=== PATIENT | female | born 1980 | race Caucasian/White ===

== ENCOUNTER 2019-10-06 08:16 | Emergency (ER) | payer SELFPAY ==
[~2019-10-06] VITALS: Ht 157 cm; Wt 81.4 kg
[2019-10-06 08:20] VITALS: BP 147/104
[2019-10-06] MEDS ORDERED: KETOROLAC 60 MG/2 ML VIAL IM STA (08:29)
[2019-10-06] MEDS ORDERED: TRIM/SULFAMETH 160/800 (SEPTRA DS) TAB PO STA (08:29)
[2019-10-06] MEDS ORDERED: HYDROcodone/APAP 5 MG/325 MG (LORTAB) TAB PO ONE (08:30)
[2019-10-06] MEDS ORDERED: cefTRIAXone 1,000 MG/2.86 ml vial (IM ONLY) IM ONE (08:30)
[2019-10-06] MEDS ORDERED: LIDOCAINE 1% INJ 20 ML 20 ML VIAL INJ ONE (08:30)
--- NOTE | 2019-10-06 08:44 | ED General ---
General Chief Complaint: Facial Problems Stated Complaint: SWOLLEN FACE Nursing Triage Note: PT CO OF L SIDED FACE AND JAW SWELLING STARTED LAST PM, PT CO OF PAIN 04/03. PT DENIES DENTAL PAIN, PT HAS PIMPLE ON L LOWER FACE THAT SHE SQUEEZED. PT STATES HAS HAD MRSA BEFORE Nursing Sepsis Screen: No Definite Risk Source of Information: Patient Exam Limitations: No Limitations History of Present Illness Date Seen by Provider: Oct 06, 2019 Time Seen by Provider: 08:23 Initial Comments Here with report of swelling to the left side of the face especially in the area of the lower jaw. Pain is radiating to the eye, ear and angle of the jaw. Denies any teeth pain. States that she had a pimple that she tried to pop. She was not able to express anything from it and just put witch lisa on it. This was yesterday and she woke up this morning with swelling and pain. She's had history of MRSA and similar swelling previously to another part of her face. She reports she was decolonized afterwards. Denies breathing problems, swallowing problems, nausea or vomiting. No reported fever. Timing/Duration: 12 Hours, Getting Worse Severity: Moderate Associated Systoms: No Cough, No Fever/Chills, No Nausea/Vomiting, No Shortness of Air, No Weakness Allergies and Home Medications Allergies Coded Allergies: No Known Drug Allergies (Unverified , 10/06/19) Home Medications Sulfamethoxazole/Trimethoprim 1 Each Tablet, 1 EACH PO BID Prescribed by: EVELINA AUGUSTE on 10/06/19 0848 Patient Home Medication List Home Medication List Reviewed: Yes Review of Systems Review of Systems Constitutional: see HPI; No chills, No fever EENTM: see HPI, ear pain, mouth pain Respiratory: no symptoms reported Cardiovascular: no symptoms reported Gastrointestinal: no symptoms reported Skin: see HPI, change in color, lesions Past Eurcfth-Mhjaeb-Oexaiy Hx Past Med/Social Hx: Reviewed Nursing Past Med/Soc Hx Patient Social History Alcohol Use: Denies Use Recreational Drug Use: No Smoking Status: Current Everyday Smoker Type Used: Cigarettes Recent Foreign Travel: No Contact w/Someone Who Travel: No Recent Infectious Disease Expo: No Recent Hopitalizations: No Physical Abuse: No Sexual Abuse: No Seasonal Allergies Seasonal Allergies: No Past Medical History Adenoidectomy, Tonsillectomy, Tubal Ligation Cardiac: No Neurological: No Genitourinary: No Gastrointestinal: No Musculoskeletal: No Endocrine: No HEENT: No Cancer: No Psychosocial: No Integumentary: Yes (MRSA) Family Medical History Reviewed Nursing Family Hx No Pertinent Family Hx Physical Exam Vital Signs Vital Signs - First Documented 10/06/19 08:20 Temp 37.2 Pulse 96 Resp 18 B/P (MAP) 147/104 (118) Pulse Ox 100 Capillary Refill : Less Than 3 Seconds Height, Weight, BMI Height: '" Weight: lbs. oz. kg; 33.00 BMI Method: General Appearance: WD/WN, Mild Distress (pain) HEENT: PERRL/EOMI, TMs Normal, Pharynx Normal, Other (no obvious dental abscess. Swelling noted to the left side of the face lateral to the corner of the lips. Central portion has papule with surrounding erythema and induration. No obvious fluctuant area.) Neck: Non Tender, Supple Respiratory: Lungs Clear, Normal Breath Sounds Cardiovascular: Regular Rate, Rhythm, No Murmur Neurologic/Psychiatric: Alert, Oriented x3 Skin: Warm/Dry, Other (lesion as described above and as noted in the images) Progress/Results/Core Measures Suspected Sepsis Recent Fever Within 48 Hours: No Infection Criteria Present: None New/Unexplained Altered Menta: No Sepsis Screen: No Definite Risk SIRS Temperature: Pulse: 96 Respiratory Rate: 18 Blood Pressure 147 /104 Mean: 118 Results/Orders My Orders Orders - EVELINA AUGUSTE MD Hydrocodone/Apap 5/325 Tablet (Lortab 5 (10/06/19 08:30) Ketorolac Injection (Toradol Injection) (10/06/19 08:29) Ceftriaxone For Im Use (Rocephin For Im (10/06/19 08:30) Sulfamethoxazole/Trimet Ds Tab (Bactrim (10/06/19 08:29) Lidocaine 1% Inj 20 Ml (Xylocaine 1% Inj (10/06/19 08:30) Medications Given in ED Current Medications Medications Dose Ordered Sig/Son Route Start Time Stop Time Status Last Admin Dose Admin Acetaminophen/ Hydrocodone Bitart 1 tab ONCE ONCE PO 10/06/19 08:30 10/06/19 08:31 DC 10/06/19 08:42 1 TAB Ceftriaxone Sodium 1,000 mg ONCE ONCE IM 10/06/19 08:30 10/06/19 08:31 DC 10/06/19 08:41 1,000 MG Lidocaine HCl 2.1 ml ONCE ONCE INJ 10/06/19 08:30 10/06/19 08:31 DC 10/06/19 08:41 2.1 ML Vital Signs/I&O 10/06/19 08:20 Temp 37.2 Pulse 96 Resp 18 B/P (MAP) 147/104 (118) Pulse Ox 100 Capillary Refill : Less Than 3 Seconds 2 Blood Pressure Mean: 118 Progress Note : Progress Note Seen and evaluated. Rocephin 1 g IM, Bactrim DS one tab by mouth, Toradol 60 mg IM and hydrocodone 5/325 one tab by mouth given. We will continue outpatient treatment with Bactrim DS given her MRSA history and this likely started with skin lesion. DC home with return precautions. Patient verbalized understanding of instructions and agreement with plan. Departure Impression Primary Impression: Cellulitis of face Disposition: HOME, SELF-CARE Condition: Stable Departure-Patient Inst. Patient Instructions: Cellulitis (Skin Infection), Adult (DC) Add. Discharge Instructions: All discharge instructions reviewed with patient and/or family. Voiced understanding. Follow-up with your Dr. in a few days for recheck. You may take ibuprofen 800 mg every 8 hours as needed for pain. You may also take Tylenol/acetaminophen 1000 mg every 8 hours as needed for pain. Take other medications as directed. Drink plenty of fluids. Return for worse pain, swelling, weakness, breathing problems, swallowing problems or other concerns as needed. Scripts Sulfamethoxazole/Trimethoprim (Bactrim Ds Tablet) 1 Each Tablet 1 EACH PO BID for 10 Days, #20 TAB 0 Refills Prov: EVELINA AUGUSTE MD 10/06/19 Images Head/Face 1 - Lesion (s) 2 - Moderate, Swelling, Tenderness EVELINA AUGUSTE MD Oct 06, 2019 08:44
[2019-10-06] MEDS ORDERED: SULF1TAB35 PO (08:48)
[2019-10-07] MEDS ORDERED: TRM50T PO (10:41)
== END 2019-10-06 09:02 | disposition home or self-care (01) ==
LOC: ER 08:20
DX: L03.211 Cellulitis of face (principal); F17.210 Nicotine dependence, cigarettes, uncomplicated
CPT/HCPCS: 99284

== ENCOUNTER 2019-10-07 10:14 | Emergency (ER) | payer SELFPAY ==
[~2019-10-07] VITALS: Ht 157.4 cm; Wt 77.2 kg
[~2019-10-07 10:14] MED LIST: SULF1TAB35 PO
[2019-10-07] MEDS ORDERED: TRM50T PO (10:41)
--- NOTE | 2019-10-07 10:41 | ED Integumentary General ---
General Chief Complaint: Skin/Wound Problems Stated Complaint: FACE SWELLING Nursing Triage Note: AMB TO ED WAS SEEN IN ED YESTERDAY FOR AREA ON L CHEEK WAS GIVEN MEDS. HERE TODAY BECAUSE CHEEK INCREASE IN SWELLING AND PAIN. Source: patient Exam Limitations: no limitations History of Present Illness Date Seen by Provider: Oct 07, 2019 Time Seen by Provider: 10:30 Initial Comments 39-year-old female presents with swelling on her left cheek. Patient was seen here yesterday due to cellulitis and early abscess formation. Patient reports his gotten considerably more swollen and with increased pain. Patient reports that there is currently no drainage. Yesterday it was indurated with no drain able abscess. Today is still very firm and warm. She reports she filled her Bactrim prescription. She comes in today due to worsening pain and is requesting something for pain. Allergies and Home Medications Allergies Coded Allergies: No Known Drug Allergies (Unverified , 10/06/19) Home Medications Sulfamethoxazole/Trimethoprim 1 Each Tablet, 1 EACH PO BID Prescribed by: EVELINA AUGUSTE on 10/06/19 0848 Tramadol HCl 50 Mg Tablet, 50 MG PO Q8H PRN for PAIN Prescribed by: DENNISE ALMANZA on 10/07/19 1041 Patient Home Medication List Home Medication List Reviewed: Yes Review of Systems Review of Systems Constitutional: No chills, No fever Respiratory: no symptoms reported Cardiovascular: no symptoms reported Gastrointestinal: no symptoms reported Skin: see HPI Psychiatric/Neurological: No Symptoms Reported Past Dwjfyyn-Atkcrr-Thlhbf Hx Past Med/Social Hx: Reviewed Nursing Past Med/Soc Hx Patient Social History Alcohol Use: Denies Use Recreational Drug Use: No Smoking Status: Current Everyday Smoker Type Used: Cigarettes Recent Foreign Travel: No Contact w/Someone Who Travel: No Recent Infectious Disease Expo: No Recent Hopitalizations: No Seasonal Allergies Seasonal Allergies: No Past Medical History Adenoidectomy, Tonsillectomy, Tubal Ligation Cardiac: No Neurological: No Genitourinary: No Gastrointestinal: No Musculoskeletal: No Endocrine: No HEENT: No Cancer: No Psychosocial: No Integumentary: Yes (MRSA) Family Medical History No Pertinent Family Hx Physical Exam Vital Signs Vital Signs - First Documented 10/07/19 10:16 Temp 37.1 Pulse 110 Resp 18 B/P (MAP) 127/109 (115) Pulse Ox 100 O2 Delivery Room Air Capillary Refill : Less Than 3 Seconds General Appearance: WD/WN, no apparent distress HEENT: PERRL/EOMI Cardiovascular: normal peripheral pulses, regular rate, rhythm Respiratory: chest non-tender, normal breath sounds Gastrointestinal: non tender, soft Extremities: normal range of motion Neurologic/Psychiatric: alert, oriented x 3 Skin: other (large area of induration/cellulitis with no drainable abscess on left cheek with some mild extension into the left upper neck.) Progress/Results/Core Measures Results/Orders My Orders Orders - CHRYSTAL ALMANZAVORinku Benz DO Tramadol Tablet (Ultram Tablet) (10/07/19 11:00) Medications Given in ED Current Medications Medications Dose Ordered Sig/Son Route Start Time Stop Time Status Last Admin Dose Admin Tramadol HCl 50 mg ONCE ONCE PO 10/07/19 11:00 10/07/19 10:55 DC 10/07/19 10:52 50 MG Vital Signs/I&O 10/07/19 10/07/19 10:16 10:56 Temp 37.1 37.1 Pulse 110 110 Resp 18 18 B/P (MAP) 127/109 (115) 127/109 (115) Pulse Ox 100 100 O2 Delivery Room Air Blood Pressure Mean: 115 Progress Progress Note : Time: 10:38 Progress Note At this time there is no drainable abscess, bedside ultrasound does not show any abscess cavity. She does have a large induration in her left cheek/chin with some mild extension into the left upper neck. I did call and discuss with Dr. Pastrana, to arrange outpatient follow-up. We made her appointment for 2:30 afternoon. She is also offered and official ultrasound or CT. She declined both at this time due to cost. Patient will be given a tramadol prescription. She should keep taking her already prescribed Bactrim. She is discharged home in stable condition. Departure Impression Primary Impression: Cellulitis Qualified Codes: L03.211 - Cellulitis of face Additional Impression: Abscess Disposition: HOME, SELF-CARE Condition: Stable Departure-Patient Inst. Referrals: NO,LOCAL PHYSICIAN (PCP) Primary Care Physician SAMANTHA PASTRANA DO Patient Instructions: Methicillin-Resistant Staphylococcus aureus (MRSA), Cellulitis (Skin Infection), Adult (DC) Add. Discharge Instructions: We have made an appointment with Dr. Pastrana at his office at 2:30 in the afternoon on . Please keep this appointment for further evaluation\\ Take antibiotics as prescribed Emergency department focuses on treating and ruling out life-threatening diseases. Whenever possible, a diagnosis is given. However, most patients are given an impression based on their history, physical exam, and workup during your brief time in the ER. Information about probable diagnosis and other educational material has been provided. Please take the time to read and understand this information. It is very important that you follow up with a physician as discussed during the visit today. Failure to adhere to your follow-up instructions may lead to severe disability, injury, or so please make sure to keep your appointments or obtain one as requested. Please keep in mind the emergency department is not designed to your primary care or "family doctor" and nonurgent issues are best evaluated by an outpatient physician All discharge instructions reviewed with patient and/or family. Voiced understanding. Scripts Tramadol HCl (Tramadol HCl) 50 Mg Tablet 50 MG PO Q8H PRN for PAIN for 3 Days, #10 TAB 0 Refills Prov: DENNISE ALMANZA DO 10/07/19 DENNISE ALMANZA DO Oct 07, 2019 10:41
[2019-10-07 10:56] VITALS: BP 127/109
--- NOTE | 2019-10-07 12:28 | NUR ---
Received phone call from patient. Pt apologetic for her actions during ED visit and stated she was in a great deal of pain at the time. Pt requesting work note for remainder of this week. Discussed w/ Dr. Huerta who treated the patient during visit earlier in the day. Dr. Huerta reports he spoke with Dr. Arce's office to schedule a follow-up appointment. Pt has appointment on (10/08) at 1430. Work note provided to patient to release from work until appointment with Dr. Arce. Discussed with patient - pt verbalized understanding of plan and provided fax number of [phone] to send work note. Work note sent.
== END 2019-10-07 10:54 | disposition home or self-care (01) ==
LOC: EDUNIT# 10:14 → ER 10:16
DX: L03.211 Cellulitis of face (principal); F17.210 Nicotine dependence, cigarettes, uncomplicated
CPT/HCPCS: 99283

== ENCOUNTER 2022-01-14 00:36 | Emergency (ER) | payer SELFPAY ==
[~2022-01-14] VITALS: Ht 157.5 cm; Wt 95.8 kg
[~2022-01-14 00:36] MED LIST changes: -SULF1TAB35 PO; +SULF1TAB38 PO; +TRM50T PO
--- NOTE | 2022-01-14 01:05 | ED Upper Extremity ---
General Chief Complaint: Upper Extremity Stated Complaint: L SHOULDER DISLOCATED Source: patient Exam Limitations: no limitations History of Present Illness Date Seen by Provider: Jan 14, 2022 Time Seen by Provider: 00:55 Initial Comments Patient is a 41-year-old female who presents to the emergency room with a chief complaint of possible dislocated left shoulder. Patient was outside at about 1030 leaning against a pool edge, she stood to get out of the pool and slipped and fell onto her left shoulder. She did not hit her head, no loss of consciousness. She complains of little bit of tingling to the fingertips of her left hand. No injury to the elbow, wrist or fingers. She did suffer a little abrasion to theelbow and forearm. She has injured this shoulder previously about 10 years ago she dislocated it. She has never had surgery on this shoulder. Last oral intake about 8:30 PM. She did have 1 cocktail this evening. No allergies to medications. No daily medications. No other complaints of illness or injury. Onset: this evening (10:30 PM) Severity: moderate Pain/Injury Location: left shoulder Method of Injury: fell Modifying Factors: Improves With Immobilization; Worse With Movement Allergies and Home Medications Allergies Coded Allergies: No Known Drug Allergies (Unverified , 10/06/19) Patient Home Medication List Home Medication List Reviewed: Yes Sulfamethoxazole/Trimethoprim (Bactrim Ds Tablet) 1 Each Tablet, 1 EACH PO BID Prescribed by: EVELINA AUGUSTE on 10/06/19 0848 Tramadol HCl (Tramadol HCl) 50 Mg Tablet, 50 MG PO Q8H PRN for PAIN Prescribed by: DENNISE ALMANZA on 10/07/19 1041 Review of Systems Constitutional: see HPI EENTM: no symptoms reported Respiratory: no symptoms reported Cardiovascular: no symptoms reported Gastrointestinal: no symptoms reported Genitourinary: no symptoms reported Musculoskeletal: joint pain (Left shoulder) Skin: other (Abrasion) All Other Systems Reviewed Negative Unless Noted: Yes Past Fnyhbro-Znasiz-Xmtbhn Hx Patient Social History Tobacco Use?: Yes Smoking Status: Current Everyday Smoker Smokeless Tobacco Frequency: Current Everyday User Substance use?: No Alcohol Use?: Yes Alcohol Frequency: Once in a while Immunizations Up To Date First/Initial COVID19 Vaccinat: J&J 2020 Seasonal Allergies Seasonal Allergies: No Past Medical History Adenoidectomy, Tonsillectomy, Tubal Ligation Cardiac: No Neurological: No Genitourinary: No Gastrointestinal: No Musculoskeletal: No Endocrine: No HEENT: No Cancer: No Psychosocial: No Integumentary: Yes (MRSA) Family Medical History No Pertinent Family Hx Physical Exam Vital Signs Vital Signs - First Documented 01/14/22 00:45 Temp 36.6 Pulse 114 Resp 16 B/P (MAP) 122/78 (93) Pulse Ox 96 O2 Delivery Room Air Capillary Refill : Height, Weight, BMI Height: '" Weight: lbs. oz. kg; 31.00 BMI Method: General Appearance: WD/WN, no apparent distress HEENT: PERRL/EOMI Neck: non-tender, full range of motion, normal inspection Cardiovascular: regular rate, rhythm Respiratory: lungs clear, normal breath sounds, no respiratory distress, no accessory muscle use Shoulder: asymmetry, limited ROM, pain, soft tissue tenderness (Over the deltoid) Elbow/Forearm: normal inspection, non-tender, no evidence of injury, Left Wrist: Yes normal inspection, Yes non-tender, Yes no evidence of injury, Yes normal ROM Hand: normal inspection, non-tender, no evidence of injury, normal ROM, Left Neurologic/Tendon: normal sensation, normal motor functions Neurologic/Psychiatric: alert, normal mood/affect, oriented x 3 Skin: normal color, warm/dry, other (Superficial abrasions over the dorsum of the proximal forearm and elbow, no open wounds or bleeding noted.) Progress/Results/Core Measures Results/Orders My Orders Orders - PAUL TAMAYO MD Ed Iv/Invasive Line Start (01/14/22 01:02) Shoulder, Left, 3 Views (01/14/22 01:02) Propofol Injection (Diprivan Injection) (01/14/22 01:15) Vital Signs/I&O 01/14/22 00:45 Temp 36.6 Pulse 114 Resp 16 B/P (MAP) 122/78 (93) Pulse Ox 96 O2 Delivery Room Air Diagnostic Imaging Diagonstic Imaging: Xray Comments left shoulder xray (interpreted by me) no evidence of fracture or dislocation Departure Impression Primary Impression: Contusion of left shoulder, initial encounter Disposition: 01 HOME, SELF-CARE Condition: Stable Departure-Patient Inst. Decision time for Depature: 01:34 Referrals: NO,LOCAL PHYSICIAN (PCP) Primary Care Physician MARINA RIZO MD Patient Instructions: Shoulder Pain ED, Contusion (DC) Add. Discharge Instructions: Ice pack to the left shoulder off-and-on 20 minutes at a time 3-4 times daily over the next couple of days. You can take [id number] ibuprofen 3 tablets which is 600 mg every 6 hours with food for pain. I have also given you a few hydrocodone tablets to take every 6 hours as needed for more severe pain. Wear the sling for 2 days and then slowly start small range of motion exercises to keep the shoulder joint mobile. Please call Dr. Rizo, orthopedic surgeon on Sunday for a follow-up appointment for further evaluation of soft tissue injury to the left shoulder. If you have any worsening symptoms of pain, swelling, numbness or weakness please come back to the emergency department for reevaluation. Scripts Hydrocodone/Acetaminophen (Hydrocodone-Acetamin 5-325 mg) 5 Mg-325 Mg Tablet 1 TAB PO Q6H PRN for PAIN-MODERATE (5-7), #10 TAB Prov: PAUL TAMAYO MD 01/14/22 Copy Copies To 1: MARINA RIZO MD, KATHRYN M MD Jan 14, 2022 01:05
[2022-01-14] MEDS ORDERED: proPOfol 200 MG/20 ML (DIPRIVAN) VIAL IV ONE (01:15)
[2022-01-14] MEDS ORDERED: ACHD5005 PO (01:36)
[2022-01-14] MEDS ORDERED: HYDROcodone/APAP 5 MG/325 MG (LORTAB) TAB PO ONE (01:45)
[2022-01-14] MEDS ORDERED: KETOROLAC 60 MG/2 ML VIAL ONE (01:45)
[2022-01-14] MEDS ORDERED: KETOROLAC 60 MG/2 ML VIAL IM ONE (01:45)
[2022-01-14] MEDS ORDERED: HYDROcodone/APAP 5 MG/325 MG (LORTAB) TAB ONE (01:45)
[2022-01-14 01:57] VITALS: BP 125/72
--- NOTE | 2022-01-14 06:51 | Diagnostic Imaging Report ---
INDICATION: Fall with left shoulder pain AP, oblique, and transscapular views of the left shoulder are obtained. No fracture or acute bony abnormality is seen. Glenohumeral joint and AC joint appear in good alignment. IMPRESSION: Negative left shoulder. Dictated by: Dictated on workstation # [id number]
== END 2022-01-14 01:57 | disposition home or self-care (01) ==
LOC: EDUNIT# 00:36 → ER 00:39
DX: S40.012A Contusion of left shoulder, initial encounter (principal); S50.312A Abrasion of left elbow, initial encounter; S50.812A Abrasion of left forearm, initial encounter; F17.200 Nicotine dependence, unspecified, uncomplicated; Z28.311 Partially vaccinated for COVID-19; W16.012A Fall into swimming pool striking water surface causing other injury, initial encounter; Y92.34 Swimming pool (public) as the place of occurrence of the external cause
CPT/HCPCS: 73030; 99284; A4565

== ENCOUNTER 2023-04-11 10:53 | Emergency (ER) | payer SELFPAY ==
[~2023-04-11] VITALS: Ht 157.5 cm; Wt 95.8 kg
[~2023-04-11 10:53] MED LIST changes: +ACHD5005 PO
[2023-04-11] MEDS ORDERED: fentaNYL INJECTION 100 MCG/2 ML VIAL IVP STA (11:13)
--- NOTE | 2023-04-11 11:18 | ED Lower Extremity ---
General Chief Complaint: Lower Extremity Stated Complaint: LT KNEE INJ | FALL Source: patient Exam Limitations: no limitations History of Present Illness Date Seen by Provider: Apr 11, 2023 Time Seen by Provider: 11:15 Initial Comments Patient is a 42-year-old female who presents ED for left knee injury. Patient states 2 days ago she was mopping. Patient states she slipped and fell and felt her left knee twist and turn backwards. She states her leg was in a awkward position. She was concerned that she dislocated her knee. She stated she sat on the ground attempted to adjust her knee and felt a pop. This improved alignment. She has been able to stand and bear weight with a knee brace Fermin wrap but reports severe pain. She feels like her left knee wants to give out. She has been taking ibuprofen and Tylenol without much improvement. She states it feels like her left leg is cool to touch but she states she was able to palpate pulses. She also reports calf pain and posterior knee pain. Denies of any hip pain, ankle pain, nausea vomiting, diarrhea fever, chills Allergies and Home Medications Allergies Coded Allergies: No Known Drug Allergies (Unverified , 10/06/19) Patient Home Medication List Home Medication List Reviewed: Yes Hydrocodone/Acetaminophen (Hydrocodone-Acetamin 5-325 mg) 5 Mg-325 Mg Tablet, 1 TAB PO Q6H PRN for PAIN-MODERATE (5-7) Prescribed by: PAUL TAMAYO on 01/14/22 0136 Hydrocodone/Acetaminophen (Hydrocodone-Acetamin 5-325 mg) 5 Mg-325 Mg Tablet, 1 TAB PO Q4H PRN for PAIN-MODERATE (5-7) Prescribed by: ERASMO QUIGLEY on 04/11/23 1233 Sulfamethoxazole/Trimethoprim (Bactrim Ds Tablet) 1 Each Tablet, 1 EACH PO BID Prescribed by: EVELINA AUGUSTE on 10/06/19 0848 Tramadol HCl (Tramadol HCl) 50 Mg Tablet, 50 MG PO Q8H PRN for PAIN Prescribed by: DENNISE ALMANZA on 10/07/19 1041 Review of Systems Constitutional: No chills, No diaphoresis EENTM: No ear pain, No blurred vision, No double vision Respiratory: No cough, No dyspnea on exertion Cardiovascular: No chest pain Gastrointestinal: No abdominal pain, No diarrhea, No nausea, No vomiting Genitourinary: No decreased output, No discharge, No dysuria, No frequency Musculoskeletal: No back pain; joint pain, joint swelling, muscle pain Skin: No change in color, No change in hair/nails All Other Systems Reviewed Negative Unless Noted: Yes Past Mgdmqit-[id number]-[id number] Hx Immunizations Up To Date First/Initial COVID19 Vaccinat: J&J 2020 Seasonal Allergies Seasonal Allergies: No Past Medical History Adenoidectomy, Tonsillectomy, Tubal Ligation Cardiac: No Neurological: No Genitourinary: No Gastrointestinal: No Musculoskeletal: No Endocrine: No HEENT: No Cancer: No Psychosocial: No Integumentary: Yes (MRSA) Family Medical History No Pertinent Family Hx Physical Exam Vital Signs Vital Signs - First Documented 04/11/23 11:06 Temp 36.9 Pulse 111 Resp 20 B/P (MAP) 130/89 (103) Pulse Ox 98 O2 Delivery Room Air Capillary Refill : Height, Weight, BMI Height: '" Weight: lbs. oz. kg; 38.00 BMI Method: General Appearance: WD/WN, no apparent distress HEENT: PERRL/EOMI, normal ENT inspection, TMs normal, pharynx normal Neck: non-tender, full range of motion, supple Cardiovascular: regular rate, rhythm, no edema, no gallop, no JVD Respiratory: chest non-tender, lungs clear, normal breath sounds, no respiratory distress, no accessory muscle use Gastrointestinal: normal bowel sounds, non tender, soft, no organomegaly Back: normal inspection, no CVA tenderness, no vertebral tenderness Hips: bilateral hip non-tender, bilateral hip normal inspection, bilateral hip normal range of motion Knees: left knee other (Left knee medial and lateral joint line tenderness. Pain with anterior drawer test with some laxity. Pain with valgus and varus stress. Normal patella tracking. Limited passive range of motion. Cap refill less than 3 left leg. Dorsalis pedis +1.) Ankles: bilateral ankle non-tender, bilateral ankle normal inspection, bilateral ankle normal range of motion Feet: bilateral foot non-tender, bilateral foot normal inspection, bilateral foot normal range of motion Neurologic/Psychiatric: direct marketing intern II-XII nml as tested, no motor/sensory deficits, alert, normal mood/affect Progress/Results/Core Measures Results/Orders Lab Results Laboratory Tests Test 04/11/23 11:25 Range/Units White Blood Count 8.8 4.3-11.0 10^3/uL Red Blood Count 4.06 3.80-5.11 10^6/uL Hemoglobin 10.7 L 11.5-16.0 g/dL Hematocrit 34 L 35-52 % Mean Corpuscular Volume 83 80-99 fL Mean Corpuscular Hemoglobin 26 25-34 pg Mean Corpuscular Hemoglobin Concent 32 32-36 g/dL Red Cell Distribution Width 17.5 H 10.0-14.5 % Platelet Count 491 H 130-400 10^3/uL Mean Platelet Volume 9.3 9.0-12.2 fL Immature Granulocyte % (Auto) 0 % Neutrophils (%) (Auto) 64 42-75 % Lymphocytes (%) (Auto) 25 12-44 % Monocytes (%) (Auto) 6 0-12 % Eosinophils (%) (Auto) 3 0-10 % Basophils (%) (Auto) 1 0-10 % Neutrophils # (Auto) 5.7 1.8-7.8 10^3/uL Lymphocytes # (Auto) 2.2 1.0-4.0 10^3/uL Monocytes # (Auto) 0.6 0.0-1.0 10^3/uL Eosinophils # (Auto) 0.3 0.0-0.3 10^3/uL Basophils # (Auto) 0.1 0.0-0.1 10^3/uL Immature Granulocyte # (Auto) 0.0 0.0-0.1 10^3/uL Prothrombin Time 13.1 12.2-14.7 SEC INR Comment 1.0 0.8-1.4 Activated Partial Thromboplast Time 33 24-35 SEC Sodium Level 138 135-145 MMOL/L Potassium Level 4.0 3.6-5.0 MMOL/L Chloride Level 104 98-107 MMOL/L Carbon Dioxide Level 23 21-32 MMOL/L Anion Gap 11 5-14 MMOL/L Blood Urea Nitrogen 6 L 7-18 MG/DL Creatinine 0.62 0.60-1.30 MG/DL Estimat Glomerular Filtration Rate 113 BUN/Creatinine Ratio 10 Glucose Level 100 70-105 MG/DL Calcium Level 9.4 8.5-10.1 MG/DL Corrected Calcium 9.3 8.5-10.1 MG/DL Total Bilirubin 0.2 0.1-1.0 MG/DL Aspartate Amino Transf (AST/SGOT) 20 5-34 U/L Alanine Aminotransferase (ALT/SGPT) 23 0-55 U/L Alkaline Phosphatase 56 40-136 U/L Total Protein 7.5 6.4-8.2 GM/DL Albumin 4.1 3.2-4.5 GM/DL My Orders Orders - YOUNG TY Knee, Left, 3 Views (04/11/23 11:13) Ct Angio Ext Lower Left W (04/11/23 11:13) Cbc And Automated Diff (04/11/23 11:13) Comprehensive Metabolic Panel (04/11/23 11:13) Partial Thromboplastin Time (04/11/23 11:13) Protime With Inr (04/11/23 11:13) Fentanyl Injection (Fentanyl Injection (04/11/23 11:13) Iohexol Injection (Omnipaque 350 Mg/Ml 1 (04/11/23 12:00) Received Contrast (Hold Metformin- Contr (04/11/23 12:00) Ns (Ivpb) 100 Ml (Sodium Chloride 0.9% 1 (04/11/23 12:00) Morphine Injection (Morphine Injection (04/11/23 12:30) Medications Given in ED Current Medications Medications Dose Ordered Sig/Son Route Start Time Stop Time Status Last Admin Dose Admin Iohexol 100 ml ONCE ONCE IV 04/11/23 12:00 04/11/23 12:07 DC 04/11/23 12:16 100 ML Morphine Sulfate 4 mg ONCE ONCE IVP 04/11/23 12:30 04/11/23 12:31 DC 04/11/23 12:26 4 MG Sodium Chloride 100 ml ONCE ONCE IV 04/11/23 12:00 04/11/23 12:07 DC 04/11/23 12:16 80 ML Vital Signs/I&O 04/11/23 11:06 Temp 36.9 Pulse 111 Resp 20 B/P (MAP) 130/89 (103) Pulse Ox 98 O2 Delivery Room Air Departure Communication (PCP) Patient is a 42-year-old female presents ED with left knee injury. This occurred 2 days ago slipped and fell rotated her left knee. She felt like she potentially dislocated her knee. She states her knee was sideways after the injury. She did hear a pop. She states she had to manipulate her knee. She has since had continuous pain in left knee, left calf and coolness to the left leg. She is concern for arterial injury and potential dislocated knee. On exam she does have some slight diminished pulses on the left but very comparable to the right. Slight coolness with cap refill less than 3. On exam some laxity noted with anterior drawer test with pain. Mild discomfort with valgus and varus stress. Normal patella tracking Limited passive range of motion secondary to pain. Due to slight abnormal findings CT angio of the left leg was ordered to rule out vascular injury. Unlikely a true dislocated knee but could be a pos sibility. CT angio of the left leg did not show any acute fracture, vascular injury. She did receive morphine and fentanyl with improvement in pain. She does have a knee brace she has been using. No emergent intervention at this time. Suggest orthopedic outpatient follow-up for further evaluation. Patient is requesting a knee immobilizer. Provided range of motion exercises at home. At this time, I recommend a MRI for further evaluation of the ligaments as there is concern for ligament injury or meniscus. If any worsening symptoms return back to ED. Bear weight as tolerated but strongly recommend working on range of motion exercises. Provided work note and restrictions Impression Primary Impression: Knee pain Disposition: 01 HOME, SELF-CARE Condition: Stable Departure-Patient Inst. Decision time for Depature: 12:32 Ref[place]: [facility] [place] Primary Care Physician JUANITA OLVERA MD Patient Instructions: Knee Sprain (DC) Add. Discharge Instructions: Recommend outpatient orthopedic follow-up. Ice, Fermin wrap, brace or knee immobilizer for comfort. If any worsening symptoms return back to ED for further evaluation All discharge instructions reviewed with patient and/or family. Voiced understanding. Scripts Hydrocodone/Acetaminophen (Hydrocodone-Acetamin 5-325 mg) 5 Mg-325 Mg Tablet 1 TAB PO Q4H PRN for PAIN-MODERATE (5-7), #8 TAB Prov: YOUNG TY 04/11/23 Work/School Note: Work Release Form Date Seen in the Emergency Department: Apr 11, 2023 Return to Work: Apr 16, 2023 Restrictions: When returned to work recommend keeping leg in a knee immobilizer YOUNG TY Apr 11, 2023 11:18
[2023-04-11 11:32] LABS: BASOPHILS # (AUTO) 0.1 10^3/uL (0.0-0.1); BASOPHILS % (AUTO) 1 % (0-10); EOSINOPHILS # (AUTO) 0.3 10^3/uL (0.0-0.3); EOSINOPHILS % (AUTO) 3 % (0-10); HEMATOCRIT 34 % (35-52); HEMOGLOBIN 10.7 g/dL (11.5-16.0); LYMPHOCYTES # (AUTO) 2.2 10^3/uL (1.0-4.0); LYMPHOCYTES % (AUTO) 25 % (12-44); MEAN CORPUSCULAR HEMOGLOBIN 26 pg (25-34); MEAN CORPUSCULAR HGB CONC 32 g/dL (32-36); MEAN CORPUSCULAR VOLUME 83 fL (80-99); MEAN PLATELET VOLUME 9.3 fL (9.0-12.2); MONOCYTES # (AUTO) 0.6 10^3/uL (0.0-1.0); MONOCYTES % (AUTO) 6 % (0-12); NEUTROPHILS # (AUTO) 5.7 10^3/uL (1.8-7.8); NEUTROPHILS % (AUTO) 64 % (42-75); PLATELET COUNT 491 10^3/uL (130-400); WHITE BLOOD COUNT 8.8 10^3/uL (4.3-11.0)
[2023-04-11 11:43] LABS: ALBUMIN 4.1 GM/DL (3.2-4.5)
[2023-04-11 11:45] LABS: CALCIUM 9.4 MG/DL (8.5-10.1)
[2023-04-11 11:46] LABS: TOTAL PROTEIN 7.5 GM/DL (6.4-8.2)
[2023-04-11 11:48] LABS: BILIRUBIN,TOTAL 0.2 MG/DL (0.1-1.0)
[2023-04-11 11:49] LABS: PROTHROMBIN TIME PATIENT 13.1 SEC (12.2-14.7)
[2023-04-11 11:50] LABS: CREATININE SERUM 0.62 MG/DL (0.60-1.30)
[2023-04-11] MEDS ORDERED: IOHEXOL 350 MG/ML 100 ML (OMNIPAQUE 350) VIAL IV ONE (12:00)
[2023-04-11] MEDS ORDERED: NS 100 ML (IVPB) BAG IV ONE (12:00)
[2023-04-11] MEDS ORDERED: HOLD METFORMIN - RECEIVED CONTRAST 20 ML VIAL IV SCH (12:00)
--- NOTE | 2023-04-11 12:24 | Diagnostic Imaging Report ---
CT ANGIO EXT LOWER LEFT W INDICATION: Knee dislocation. Diminished distal pulses. COMPARISON: None available. TECHNIQUE: CTA imaging of the knee was performed with IV contrast. Automatic exposure controls were utilized to keep dose as low as reasonably achievable. 3-D MIP reformats were created and submitted. FINDINGS: Distal superficial femoral artery is normal. The popliteal artery is widely patent. There is no popliteal artery pseudoaneurysm or dissection. The common posterior tibial-peroneal trunk is normal. The anterior tibial, posterior tibial and peroneal veins are all widely patent in the proximal lower leg. No fracture about the knee. PCL appears intact. Alignment of the knee is normal. No trochlear dysplasia. IMPRESSION: 1. No arterial injury around the knee. 2. The knee is normal in alignment and has no associated fracture. Dictated by: Dictated on workstation # [id number]
[2023-04-11] MEDS ORDERED: morphine INJ 10 MG/ML 1ML (SYR OR VIAL) IVP ONE (12:30)
[2023-04-11] MEDS ORDERED: ACHD5005 PO (12:33)
--- NOTE | 2023-04-11 12:39 | Diagnostic Imaging Report ---
CLINICAL INDICATION: Patient was mopping and fell two days ago. Patient felt left knee dislocated. Patient has knee pain. EXAM: X-ray of the left knee, three views. COMPARISON: None. FINDINGS: There is no acute fracture or dislocation. There is a small knee effusion. There is no other significant bony abnormality. IMPRESSION: There is no acute fracture or dislocation. There is a small knee effusion. Dictated by: Dictated on workstation # [id number]
[2023-04-11 12:50] VITALS: BP 118/72
== END 2023-04-11 12:50 | disposition home or self-care (01) ==
LOC: EDUNIT# 10:53 → ER 10:56
DX: M25.562 Pain in left knee (principal); W01.0XXA Fall on same level from slipping, tripping and stumbling without subsequent striking against object, initial encounter; X50.1XXA Overexertion from prolonged static or awkward postures, initial encounter; Y93.E5 Activity, floor mopping and cleaning
CPT/HCPCS: 36415; 73562; 73706; 80053; 85025; 85610; 85730; 96374; 96375